=== PATIENT | female | born 1975 | race Asian ===

== ENCOUNTER 2016-08-19 16:27 | Inpatient (IN) | payer OTHER ==
[~2016-08-19] VITALS: Ht 165.1 cm; Wt 76.7 kg
[2016-08-19 17:00] LABS: HEMOGLOBIN 13.9 gm/dl (12.3-15.3); RED BLOOD COUNT 4.41 M/UL (4.00-5.10); WHITE BLOOD COUNT 8.7 K/UL (4.5-11.0)
[2016-08-21 05:43] LABS: HEMOGLOBIN 10.7 gm/dl (12.3-15.3)
[2016-08-22] MEDS ORDERED: COLACE 100MG C100 MG PO (13:32)
== END 2016-08-22 08:33 | disposition home or self-care (01) | DRG 775 ==
LOC: GENOP 16:27 → OB 16:40
PROVIDERS: ADMIT Obstetrics & Gynecology
PROC: 10E0XZZ Delivery of Products of Conception, External Approach (ICD-10-PCS; principal; 2016-08-20)
PROC: 10907ZC Drainage of Amniotic Fluid, Therapeutic from Products of Conception, Via Natural or Artificial Opening (ICD-10-PCS; 2016-08-20)
PROC: 0U7C7ZZ Dilation of Cervix, Via Natural or Artificial Opening (ICD-10-PCS; 2016-08-20)
PROC: 3E033VJ Introduction of Other Hormone into Peripheral Vein, Percutaneous Approach (ICD-10-PCS; 2016-08-20)
PROC: 0KQM0ZZ Repair Perineum Muscle, Open Approach (ICD-10-PCS; 2016-08-20)
DX: O36.5930 Maternal care for other known or suspected poor fetal growth, third trimester, not applicable or unspecified (principal); O70.1 Second degree perineal laceration during delivery; O09.523 Supervision of elderly multigravida, third trimester; Z3A.38 38 weeks gestation of pregnancy; Z37.0 Single live birth; D64.9 Anemia, unspecified
CPT/HCPCS: 51702; 81001; 82800; 85014; 85018; 85025; 85461; 86850; 86900; 86901; 90707; 90715; J2590; J2790; J2795; J3010; J7120